=== PATIENT | male | born 1945 | race Caucasian/White ===

== ENCOUNTER → 2019-03-13 | Outpatient (CLI) | payer OTHER ==
[~2019-03-13] MED LIST: BLUEBERRY FLAVOR1 ML MC; COQ-10100 MG PO; D3 DOTS2000 UNIT PO; DRANOCHOL375 MG PO; FOLBIC PO; FOLIC ACID1 MG PO; HYDROCODON-ACE1 EAC8; MULTI VITAMIN1 EACH PO; OCUVITE TABLET1 EAC1 PO; OMEGA-31000 M1 PO; ULTRAM 50MG TAB50 MG PO; VYTORIN 10-101 EACH PO
== END ==
LOC: SJCVC 11:00
DX: E78.00 Pure hypercholesterolemia, unspecified (principal); R07.9 Chest pain, unspecified; R06.09 Other forms of dyspnea; Z87.891 Personal history of nicotine dependence

== ENCOUNTER → 2019-11-26 | Outpatient (CLI) | payer OTHER | LOC: SJCVC 10:56 | PROVIDERS: ATTEND Internal Medicine Cardiovascular Disease | DX: I25.10 Atherosclerotic heart disease of native coronary artery without angina pectoris (principal); E78.00 Pure hypercholesterolemia, unspecified; I49.1 Atrial premature depolarization; K21.9 Gastro-esophageal reflux disease without esophagitis; R00.2 Palpitations; R01.1 Cardiac murmur, unspecified ==

== ENCOUNTER → 2019-11-27 | Outpatient (CLI) | payer OTHER ==
[~2019-11-27] MED LIST changes: +ASA81BEC PO; -D3 DOTS2000 UNIT PO; +D3 DOTS50 MCG PO; +GLUCOSAMIN-CHO1 EACH PO; +OCUVITE LUTEIN1 EAC2 PO; +ZETIA10 MG PO; +ZOCOR20 MG PO
--- NOTE | 2019-11-27 12:14 | 2DMMODE ---
[facility] [place] [address] 2 D/M-MODE ECHOCARDIOGRAM Name: SUSAN ALLEN Room #: REG JUAN ANTONIO ArandaSwati#: [id number] Admission: 11/27/19 Attend Phys: Chapin Elizabeth MD Discharge: Date of : 43 Report #: [id number] THIS REPORT FOR: cc: Amador Leonard Bradford DO Park,Chapin Salinas MD ~ APPROVED REPORT Study performed: 11/27/2019 10:00:27 EXAM: Comprehensive 2D, Doppler, and color-flow Echocardiogram Patient Location: Out-Patient Status: routine BSA: 2.26 HR: 68 bpm BP: 148/86 mmHg Rhythm: Sinus arrhythmia Other Information Study Quality: Adequate Indications Valvular murmur. 2D Dimensions RVDd: 34.62 mm IVSd: 10.46 (7-11mm) LVOT Diam: 23.17 (18-24mm) LVDd: 53.32 mm PWd: 10.86 (7-11mm) Ascending Ao: 36.93 (22-36mm) LVDs: 39.37 (25-40mm) Aortic Root: 40.42 mm Volumes Left Atrial Volume (Systole) Single Plane 4CH: 73.61 mL Single Plane 2CH: 88.42 mL LA ESV Index: 39.00 mL/m2 Aortic Valve AoV Peak Steve.: 1.53 m/s AO Peak Gr.: 9.38 mmHg LVOT Max P.79 mmHg LVOT Max V: 0.84 m/s PERLA Vmax: 2.30 cm2 [facility] [address] [place] [address] 2 D/M-MODE ECHOCARDIOGRAM Name: SUSAN ALLEN Room #: REG [facility]#: [id number] Admission: 11/27/19 Attend Phys: Chapin Elizabeth MD Discharge: Date of : 43 Report #: [id number] Mitral Valve E/A Ratio: 0.8 MV Decel. Time: 276.29 ms MV E Max Steve.: 0.67 m/s MV A Steve.: 0.85 m/s MV PHT: 80.12 ms IVRT: 92.27 ms Pulmonary Valve PV Peak Steve.: 1.04 m/s PV Peak Gr.: 4.32 mmHg Pulmonary Vein P Vein S: 0.61 m/s P Vein A: 0.31 m/s P Vein D: 0.53 m/s P Vein A Dur.: 214.5 msec P Vein S/D Ratio: 1.15 Tricuspid Valve TR Peak Steve.: 2.47 m/s RAP Estimate: 5.00 mmHg TR Peak Gr.: 24.47 mmHg PA Pressure: 29.00 mmHg Left Ventricle The left ventricle is normal size. There is normal LV segmental wall motion. There is normal left ventricular wall thickness. Left ventricular systolic function is normal. LVEF is 55-60%. Mild diastolic dysfunction is present (impaired relaxation pattern). Right Ventricle The right ventricle is normal size. The right ventricular systolic function is normal. Atria Left atrium is mildly dilated. The right atrium size is normal. Aortic Valve The aortic valve is normal in structure. No aortic regurgitation is present. There is no aortic valvular stenosis. Mitral Valve Mitral valve leaflets are thickened. Moderate to severe mitral regurgitation No evidence of mitral valve stenosis. Tricuspid Valve The tricuspid valve is normal in structure. Trace tricuspid [facility] [address] [place] [address] 2 D/M-MODE ECHOCARDIOGRAM Name: SUSAN ALLEN Room #: REG Berna#: [id number] Admission: 11/27/19 Attend Phys: Chapin Elizabeth MD Discharge: Date of : 43 Report #: [id number] regurgitation. Estimated PAP is 30mmHg. Pulmonic Valve The pulmonary valve is normal in structure. Mild pulmonic regurgitation. Great Vessels Aortic root is mildly dilated. The ascending aorta is normal in size. IVC is normal in size and collapses >50% with inspiration. Pericardium There is no pericardial effusion. <Conclusion> The left ventricle is normal size. Left ventricular systolic function is normal. Mild diastolic dysfunction is present (impaired relaxation pattern). The right ventricle is normal size. Left atrium is mildly dilated. The aortic valve is normal in structure. Mitral valve leaflets are thickened. Moderate to severe mitral regurgitation Trace tricuspid regurgitation. Estimated PAP is 30mmHg. <ELECTRONICALLY SIGNED> By: Chapin Elizabeth MD 11/27/191213 13 13 Chapin Elizabeth MD /INF
== END ==
LOC: CV 09:52
PROVIDERS: ATTEND Internal Medicine Cardiovascular Disease
DX: I08.9 Rheumatic multiple valve disease, unspecified (principal); R01.1 Cardiac murmur, unspecified

== ENCOUNTER → 2019-11-28 | Outpatient (CLI) | payer OTHER ==
[~2019-11-28] MED LIST changes: +D3 DOTS2000 UNIT PO; -D3 DOTS50 MCG PO
== END ==
LOC: LAB 14:04
PROVIDERS: ATTEND Internal Medicine Cardiovascular Disease
DX: Z01.812 Encounter for preprocedural laboratory examination (principal); Z20.828 Contact with and (suspected) exposure to other viral communicable diseases

== ENCOUNTER → 2019-12-03 | Outpatient (CLI) | payer OTHER ==
[~2019-12-03] VITALS: Ht 193 cm; Wt 95.3 kg
[2019-12-03 07:20] VITALS: BP 139/71
--- NOTE | 2019-12-03 08:50 | TEE ---
[facility] [place] [address] TRANSESOPHAGEAL ECHOCARDIOGRAM Name: SUSAN ALLEN Room #: REG [facility]#: [id number] Admission: 12/03/19 Attend Phys: Tavo Nelson MD, Discharge: Date of : 43 Report #: [id number] THIS REPORT FOR: cc: Amador Leonard Bradford DO Lundgren,Tavo Manuel MD [facility] ~ APPROVED REPORT Study performed: 12/03/2019 07:45:03 EXAM: Transesophageal Echocardiogram Patient Location: Out-Patient Status: routine BSA: 2.26 HR: 59 bpm BP: 134/77 mmHg Rhythm: NSR Other Information Study Quality: Good Indications Mitral regurgitation. Procedure After obtaining informed consent, patient underwent transesophageal echo in the [employer]. Type of Sedation : Conscious Sedation Sedation was administered by HANS Caldera. Sedation was achieved intravenously with: Versed (3) Fentanyl (50) Transesophageal probe was inserted and advanced into esophagus without difficulty by Tavo Nelson MD. Echo enhancement indication: R/O Septal defect. Echo enhancement agent administered: Agitated Saline The SHANTAL was performed without complications. Throughout the procedure, the blood pressure, pulse oximetry, cardiac rhythm, and rate were monitored. The patient tolerated the procedure without adverse effects. Recovery from conscious sedation was uneventful and vital signs were stable. Left Ventricle The left ventricle is normal size. There is normal LV segmental wall [facility] [address] [place] [address] TRANSESOPHAGEAL ECHOCARDIOGRAM Name: SUSAN ALLEN Room #: REG CL [facility]#: [id number] Admission: 12/03/19 Attend Phys: Tavo Nelson, Discharge: Date of : 43 Report #: [id number] motion. There is normal left ventricular wall thickness. Left ventricular systolic function is low normal. LVEF is 50-55%. Right Ventricle The right ventricle is normal size. The right ventricular systolic function is normal. Atria Left atrium is dilated. No thrombus is visualized in the left atrium or appendage. No shunting noted with contrast bubble injection. The right atrium size is normal. Aortic Valve The aortic valve is normal in structure. No aortic regurgitation is present. There is no aortic valvular stenosis. Mitral Valve Ruptured posterior mitral leaflet chordae with flail segment of posterior leaflet and severe mitral insufficiency (Image 2, frame 14; image 31,frame 32) No evidence of mitral valve stenosis. Tricuspid Valve The tricuspid valve is normal in structure. Trace tricuspid regurgitation. Pulmonic Valve The pulmonary valve is normal in structure. Trace pulmonic regurgitation. Great Vessels The aortic root is normal in size. Minimal atherosclerotic plaque is present in the descending aorta. IVC is normal in size and collapses >50% with inspiration. Pericardium There is no pericardial effusion. <Conclusion> Left ventricular systolic function is low normal. There is normal LV segmental wall motion. LVEF is 50-55%. Left atrium is dilated. No thrombus is visualized in the left atrium or appendage. No shunting noted with contrast bubble injection. The aortic valve is normal in structure. No aortic regurgitation or stenosis. [facility] [address] [place] [address] TRANSESOPHAGEAL ECHOCARDIOGRAM Name: SUSAN ALLEN Room #: REG [facility].#: [id number] Admission: 12/03/19 Attend Phys: Tavo Nelson, Discharge: Date of : 43 Report #: [id number] Ruptured posterior mitral leaflet chordae with flail segment of posterior leaflet and severe mitral insufficiency (Image 2, frame 14; image 31,frame 32) There is no pericardial effusion. <ELECTRONICALLY SIGNED> By: Tavo Nelson MD, FACC 12/03/1950 8 8 Tavo Nelson MD, FACC /INF
== END | disposition home or self-care (01) ==
LOC: CATH 06:30
PROVIDERS: ATTEND Internal Medicine
DX: I08.1 Rheumatic disorders of both mitral and tricuspid valves (principal); I70.0 Atherosclerosis of aorta; I10 Essential (primary) hypertension; E78.00 Pure hypercholesterolemia, unspecified; E78.5 Hyperlipidemia, unspecified; K21.9 Gastro-esophageal reflux disease without esophagitis; Z98.890 Other specified postprocedural states; Z79.899 Other long term (current) drug therapy; Z90.49 Acquired absence of other specified parts of digestive tract; Z87.891 Personal history of nicotine dependence; Z79.82 Long term (current) use of aspirin

== ENCOUNTER → 2019-12-11 | Outpatient (CLI) | payer OTHER ==
[~2019-12-11] VITALS: Ht 193 cm; Wt 95.3 kg
[~2019-12-11] MED LIST changes: -D3 DOTS2000 UNIT PO; +D3 DOTS50 MCG PO
[2019-12-11 07:25] VITALS: BP 154/68
[2019-12-11 07:48] LABS: HEMATOCRIT 44.9 % (42.0-52.0); MCH 32.8 pg (26.0-34.0); MCHC 33.4 g/dL (28.0-37.0); MCV 98.2 fL (80.0-100.0); RBC 4.58 mil/uL (4.50-6.00); RDW 13.8 % (10.5-14.5); WBC 5.1 thou/uL (4.0-11.0)
[2019-12-11 08:03] LABS: CALCIUM 8.9 mg/dL (8.5-10.1); CREATININE 1.1 mg/dL (0.7-1.3); POTASSIUM 4.1 mmol/L (3.5-5.1)
[2019-12-11 09:02] LABS: BE(vivo) 0 mmol/L (-2 to +3); HCO3 26.4 mmol/L (22.0-26.0); PCO2 49.8 mmHg (35.0-45.0); PO2 127.9 mmHg (80.0-100.0); pH 7.343 (7.360-7.450); sO2 98.4 % (92.0-98.0)
[2019-12-11 09:03] LABS: BE(vivo) -3.5 mmol/L (-2 to +3); HCO3 23.2 mmol/L (22.0-26.0); PCO2 48.1 mmHg (35.0-45.0); PO2 45.5 mmHg (80.0-100.0); pH 7.301 (7.360-7.450); sO2 76.7 % (92.0-98.0)
--- NOTE | 2019-12-11 13:45 | CATHLAB ---
[facility] [place] [address] [place] [address] INVASIVE PROCEDURE REPORT Name: SUSAN ALLEN Room #: REG JUAN ANTONIO Swati#: [id number] Admission: 12/11/19 Attend Phys: Chapin Elizabeth MD Discharge: Date of : 43 Report #: [id number] THIS REPORT FOR: cc: NO FAMILY PHYSICIAN or PCP NO FAMILY PHYSICIAN or PCP Chapin Elizabeth MD ~ APPROVED REPORT Study performed: 12/11/2019 08:14:46 Patient Details The patient is a 74 year-old male Event Personnel Chapin Elizabeth Last Puller, Nicky Longo RN RN, Cheli Gotti RN RN, Leigh Haynes, Ericka Alonzo Scrub Procedures Performed Art Access - R femoral artery* Levon Access - R femoral vein Right and Left Heart Cath w/or w/o Coronarie [id number] [facility] 42893 Initial Mod Sed Same Phys/QHP Gr5y 780899 22306 Mod Sed Same Phys/QHP Ea 022519 Hemostasis with Manual pressure Indication Valvular heart disease, Murmur Risk Factors Hypercholesterolemia, Coronary Artery DiseaseHypertension Procedure Narrative The Right Groin^ was infiltrated with subcutaneous anesthesia. A PINNACLE 4FR Sheath #[id number] sheath was inserted into the RFA 4F^. Coronary angiography was performed using coronary diagnostic catheters. The right coronary system was accessed and visualized with a JR4 catheter. The left coronary system was accessed and visualized with a JL4 catheter. The left ventricle was accessed and visualized with a ANGLE PIG catheter. Left ventriculogram was performed in 30 degree projection. Hemostasis was obtained with manual pressure following sheath removal without any complications. PUT A 7F SHEATL IN THE VENOUS FOR RITA DANIELS AND ELPIDIO. Intraoperative Conscious Sedation Sedation start time: 836 Case end Time: [facility] [address] [place] [address] INVASIVE PROCEDURE REPORT Name: TIFFANYSUSAN Ashley Room #: REG [facility]#: [id number] Admission: 12/11/19 Attend Phys: Chapin Elizabeth MD Discharge: Date of : 43 Report #: [id number] Fentanyl 50 mcg Versed 1 mg Fluoro Time: 5.80 minutes Dose: DAP 6704.00 cGycm2 1147 mGy Contrast Type and Amount: Omnipaque 85 ml Coronary Angiography The patient's coronary anatomy is co- dominant. Diagnostic Cath Left Main The left main artery is a large-caliber vessel, appears angiographically normal. LAD The LAD is a moderate-sized caliber vessel, traversing the anterior wall and wrapping around the apex. There is mild calcification in the midsegment with mild diffuse disease, 20 to 30%. Diagonal 1 This is a small to moderate-sized caliber vessel, patent with no flow-limiting lesions. Diagonal 2 This is a moderate-sized caliber vessel, patent with no flow-limiting lesions. Circumflex The left circumflex artery is a codominant vessel, appears angiographically normal. OM1 This is a moderate-sized caliber vessel, patent with no flow-limiting lesions. OM2 This is a small to moderate-sized caliber vessel, patent with no flow-limiting lesions. OM3 This is a moderate-sized caliber vessel, patent with no flow-limiting lesions. Right Coronary There is very mild disease in the midsegment of the RCA. R PDA This is a small to moderate-sized caliber vessel, patent with no flow-limiting lesions. Left Ventriculography The left ventricle is normal in size with normal contractility. The left ventricular ejection fraction is estimated to be >55%. There is severe mitral insufficiency. Hemodynamics The right atrial mean pressure is 8 mmHg. The right ventricular pressure is 26/5 mmHg. The pulmonary artery pressure is 26/10 mmHg with a mean of 17 mmHg. The mean pulmonary capillary wedge pressure is 8 mmHg. The aortic pressure is 126/69 mmHg with a mean of 68 mmHg. The left ventricular pressure is 118/3 mmHg with a mean of mmHg. The left ventricular end diastolic pressure is [address] [facility] [address] [place] [address] INVASIVE PROCEDURE REPORT Name: SUSAN ALLEN Room #: [id number] Admission: 12/11/19 Attend Phys: Chapin Elizabeth MD Discharge: Date of : 43 Report #: [id number] is 76.70 %. Arterial saturation is 98.00 %. The cardiac output using the Elpidio method is 5.58 L/min. The cardiac index using the Elpidio method is 2.47 L/min/m2. Conclusion 1. There is mild disease in the mid segment of the LAD. 2. Codominant system. 3. Right-sided hemodynamics as measured. 4. Severe mitral regurgitation. 5. Normal LV systolic function. <ELECTRONICALLY SIGNED> By: Chapin Elizabeth MD 12/11/19 1345 Chapin Elizabeth MD /INF
== END | disposition home or self-care (01) ==
LOC: CATH 06:32
PROVIDERS: ATTEND Internal Medicine Cardiovascular Disease
DX: I25.10 Atherosclerotic heart disease of native coronary artery without angina pectoris (principal); I34.0 Nonrheumatic mitral (valve) insufficiency; I10 Essential (primary) hypertension; K21.9 Gastro-esophageal reflux disease without esophagitis; E78.00 Pure hypercholesterolemia, unspecified; Z98.890 Other specified postprocedural states; Z79.899 Other long term (current) drug therapy; Z79.82 Long term (current) use of aspirin; Z90.49 Acquired absence of other specified parts of digestive tract; Z87.891 Personal history of nicotine dependence

== ENCOUNTER → 2019-12-23 | Outpatient (CLI) | payer OTHER | LOC: SJCVC 14:58 | PROVIDERS: ATTEND Internal Medicine Cardiovascular Disease | DX: I34.0 Nonrheumatic mitral (valve) insufficiency (principal); I25.10 Atherosclerotic heart disease of native coronary artery without angina pectoris; E78.00 Pure hypercholesterolemia, unspecified; Z79.899 Other long term (current) drug therapy; Z87.891 Personal history of nicotine dependence ==

== ENCOUNTER → 2020-03-15 | Outpatient (CLI) | payer OTHER | LOC: SJCVC 11:09 | PROVIDERS: ATTEND Internal Medicine Cardiovascular Disease | DX: R94.31 Abnormal electrocardiogram [ECG] [EKG] (principal); I34.0 Nonrheumatic mitral (valve) insufficiency; I48.0 Paroxysmal atrial fibrillation; I25.10 Atherosclerotic heart disease of native coronary artery without angina pectoris; I10 Essential (primary) hypertension; E78.00 Pure hypercholesterolemia, unspecified; R00.1 Bradycardia, unspecified; K21.9 Gastro-esophageal reflux disease without esophagitis; E78.5 Hyperlipidemia, unspecified; Z79.899 Other long term (current) drug therapy ==

== ENCOUNTER → 2020-04-08 | Outpatient (CLI) | payer OTHER | LOC: SJCVC 11:38 | PROVIDERS: ATTEND Internal Medicine Cardiovascular Disease | DX: R00.1 Bradycardia, unspecified (principal); I34.0 Nonrheumatic mitral (valve) insufficiency; I48.0 Paroxysmal atrial fibrillation; I25.10 Atherosclerotic heart disease of native coronary artery without angina pectoris; K21.9 Gastro-esophageal reflux disease without esophagitis; E78.5 Hyperlipidemia, unspecified; E78.00 Pure hypercholesterolemia, unspecified; Z79.899 Other long term (current) drug therapy; Z87.891 Personal history of nicotine dependence; Z72.89 Other problems related to lifestyle ==

== ENCOUNTER → 2020-04-29 | Outpatient (CLI) | payer OTHER | LOC: SJCVC 09:00 | PROVIDERS: ATTEND Internal Medicine Cardiovascular Disease | DX: I48.0 Paroxysmal atrial fibrillation (principal); I49.5 Sick sinus syndrome; E78.5 Hyperlipidemia, unspecified; I25.10 Atherosclerotic heart disease of native coronary artery without angina pectoris; Z87.891 Personal history of nicotine dependence; Z72.89 Other problems related to lifestyle ==

== ENCOUNTER → 2020-06-29 | Outpatient (CLI) | payer OTHER | LOC: SJCVC 10:14 | PROVIDERS: ATTEND Internal Medicine Cardiovascular Disease | DX: R94.31 Abnormal electrocardiogram [ECG] [EKG] (principal); I34.0 Nonrheumatic mitral (valve) insufficiency; I48.0 Paroxysmal atrial fibrillation; I25.10 Atherosclerotic heart disease of native coronary artery without angina pectoris; I10 Essential (primary) hypertension; E78.00 Pure hypercholesterolemia, unspecified; K21.9 Gastro-esophageal reflux disease without esophagitis; Z88.8 Allergy status to other drugs, medicaments and biological substances; Z79.899 Other long term (current) drug therapy; Z87.891 Personal history of nicotine dependence; Z72.89 Other problems related to lifestyle ==

== ENCOUNTER → 2020-12-30 | Outpatient (CLI) | payer OTHER | LOC: SJCVC 11:15 | PROVIDERS: ATTEND Internal Medicine Cardiovascular Disease | DX: R94.31 Abnormal electrocardiogram [ECG] [EKG] (principal); I25.10 Atherosclerotic heart disease of native coronary artery without angina pectoris; I48.0 Paroxysmal atrial fibrillation; I34.0 Nonrheumatic mitral (valve) insufficiency; I10 Essential (primary) hypertension; K21.9 Gastro-esophageal reflux disease without esophagitis; Z82.49 Family history of ischemic heart disease and other diseases of the circulatory system; Z87.891 Personal history of nicotine dependence; Z72.89 Other problems related to lifestyle; Z79.899 Other long term (current) drug therapy; Z88.8 Allergy status to other drugs, medicaments and biological substances ==

== ENCOUNTER → 2021-01-11 | Outpatient (CLI) | payer OTHER ==
[~2021-01-11] MED LIST changes: +CARVEDILOL12.5 MG PO; +KRILL OIL 1,001 EACH PO; +TAMSULOSIN HCL0.4 MG PO; +XARELTO20 MG PO
[2021-01-11 11:03] LABS: URINE BILIRUBIN NEGATIVE (Negative); URINE BLOOD NEGATIVE (Negative); URINE CLARITY CLEAR; URINE COLOR YELLOW; URINE GLUCOSE-RANDOM* NEGATIVE (Negative); URINE KETONES NEGATIVE (Negative); URINE LEUKOCYTES-REFLEX NEGATIVE (Negative); URINE NITRITE-REFLEX NEGATIVE (Negative); URINE PROTEIN (DIPSTICK) NEGATIVE (Negative); URINE UROBILINOGEN 0.2 E.U./dl (0.2-1.0)
[2021-01-11 11:04] LABS: HEMATOCRIT 47.2 % (42.0-52.0); HEMOGLOBIN 15.4 gm/dL (14.0-18.0); MCHC 32.7 g/dL (28.0-37.0); MCV 97.8 fL (80.0-100.0); RBC 4.82 mil/uL (4.50-6.00); RDW 13.9 % (10.5-14.5); WBC 6.8 thou/uL (4.0-11.0)
[2021-01-11 11:20] LABS: INR 1.07; PROTIME 11.6 Seconds (10.5-12.1)
[2021-01-11 11:41] LABS: ALBUMIN 3.9 g/dL (3.4-5.0); CALCIUM 9.2 mg/dL (8.5-10.1); CREATININE 0.9 mg/dL (0.7-1.3); POTASSIUM 4.4 mmol/L (3.5-5.1)
== END ==
LOC: PAC 06:07
PROVIDERS: ATTEND Orthopaedic Surgery
DX: Z01.812 Encounter for preprocedural laboratory examination (principal); M17.0 Bilateral primary osteoarthritis of knee; Z20.822 Contact with and (suspected) exposure to COVID-19

== ENCOUNTER 2021-01-17 06:19 | Observation (INO) | payer OTHER ==
[~2021-01-17] VITALS: Ht 193 cm; Wt 104.3 kg
--- NOTE | 2021-01-17 09:47 | O ---
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 PROCEDURE: Left knee medial hemiarthroplasty using Biomet Woodbridge knee system. SURGEON: Jadon Scott MD INDICATIONS: This slender, healthy, very active 75-year-old gentleman complains of progressive bilateral knee pain. He has moderate varus malalignment with medial compartment collapse and [id number] articulation. He still has rather good cartilage space at the patella and the lateral compartment where he does not have significant symptoms. We discussed treatment options. He has tried conservative measures including anti-inflammatories and injection and activity moderation. We have discussed both total knee replacement and medial hemiarthroplasty. He notes he is still quite physically fit and very active and essentially all symptoms along the medial aspect. Given this, he prefers a medial hemiarthroplasty approach. DESCRIPTION OF PROCEDURE: The patient was taken to the operating room where he was placed under general anesthesia. Prophylactic intravenous antibiotics were administered. A femoral nerve block was also applied. The left knee and leg were meticulously prepped and draped. A thigh tourniquet was inflated to 300 mmHg. An anterior longitudinal skin incision was made along the medial border of the patella extending to the medial tibial plateau. This was extended through fascia and capsule to expose the medial aspect of the joint. Marked degenerative change in the medial compartment with essentially complete loss of cartilage was noted. The cruciate ligaments were still intact. There was some spurring about the femoral notch and the patella, which was debrided. There was still fairly good cartilage in that compartment. There seemed to be adequate cartilage in the lateral compartment as well. The PlaySight knee system was utilized. The outrigger guide was used to make the tibial cuts. The medial articular surface was resected. A size D tibial tray seemed to fit most nicely. The femoral intramedullary guide was placed and the femoral cuts were made. A size C femoral component seemed to fit nicely. A trial reduction was performed and additional resection was made distally to balance flexion and extension. [address] [address] OPERATIVE REPORT Name: SUSAN ALLEN Room #: 150-2 [facility]..#: [id number] Admission: 01/17/21 Attend Phys: Jadon Scott MD Discharge: Date of : 43 Report #: [id number] Once these were nicely balanced, a 4 mm polyethylene spacer seemed to fit nicely and resulted in good stability in both flexion and extension. The knee demonstrated full knee extension and flexion beyond 130 degrees with good stability. The trial components were removed. Remaining osteophytes were resected. The sclerotic surface in the inferior aspect of the femoral condyle was perforated with several drill holes to improve cement fixation. Methyl methacrylate cement was mixed. The permanent components were brought up on to the field. The methyl methacrylate cement was injected into the porous surface of the proximal tibia. The Biomet Woodbridge size D tibial tray was selected. This was impacted into the tibia. It seated nicely and appeared to be secure. Excess cement was removed around its margin. The size medium left femoral component was selected and impacted on the distal femur using appropriate anchor holes. Excess cement was removed around its margin. It seated nicely and appeared to be secure. A trial reduction was again performed and again the 4 mm thick meniscal bearing seemed to fit nicely. The permanent bearing was selected and gently snapped into place. It seated well and appeared to track nicely and appeared to be secure without any evidence of instability. The knee was copiously irrigated. All excess fluid was evacuated from the knee. The knee was then closed in layers using #1 Vicryl for the fascia and capsule and 2-0 Monocryl for the subcutaneous tissues and ismael in the skin. A sterile dressing was applied. The patient was awakened and returned to the recovery room in good condition. <ELECTRONICALLY SIGNED> By: Jadon Scott MD 01/17/21 0947 0820 0833 Jadon Scott MD /nt
--- NOTE | 2021-01-17 11:52 | NUR ---
ADMITTED T0 4S @ 1050 AFTER LEFT KNEE REPLACEMENT BY . A/O X 4. ON 2 L 02 POST VIA NASAL CANNULA. BEDREST. VSS. 1/2 NS INFUSING @ 100 MLS/HR VIA RIGHT WRIST PIV. BILATERAL TEDS, SCDS ON. LEFT KNEE MARGARITA DRESSING AND ICE PACK TO KNEE. XARELTO DVT PPX. PERCOCET GIVEN FOR 8/10 LEFT KNEE PAIN. EATING REGULAR DIET. USES URINAL
[2021-01-17 19:52] VITALS: BP 130/69
--- NOTE | 2021-01-18 01:48 | NUR ---
PT IS A/O X4 AND IS UP WITH ASSISTANCE.ROOM AIR. VSS. AFEBRILE. DRSG TO KNEE IS C/D/I. PT IS PLEASANT AND COOPERATIVE. C/O PAIN. PRN PAIN MEDICATIONS GIVEN DIRECTED. FALL PRECAUTIONS IN PLACE, CALL LIGHT IS WITHIN REACH. PT IS PROGRESSING TOWARDS PLAN OF CARE DC GOALS
[2021-01-18 05:55] LABS: ABSOLUTE NEUTROPHILS 7.8 thou/uL (1.4-8.2); BASOPHILS 0.1 % (0.0-2.0); EOSINOPHILS 0.1 % (0.0-3.0); HEMOGLOBIN 13.1 gm/dL (14.0-18.0); LYMPHOCYTES 6.7 % (24.0-44.0); MCH 32.8 pg (26.0-34.0); MCHC 33.7 g/dL (28.0-37.0); MCV 97.3 fL (80.0-100.0); MONOCYTES 6.1 % (1.0-8.0); PLATELET COUNT 166 thou/uL (150-400); RDW 13.8 % (10.5-14.5); WBC 8.9 thou/uL (4.0-11.0)
[2021-01-18 06:33] LABS: CALCIUM 8.3 mg/dL (8.5-10.1); MAGNESIUM 2.1 mg/dL (1.8-2.4); POTASSIUM 4.4 mmol/L (3.5-5.1)
[2021-01-18 07:43] VITALS: BP 128/75
[2021-01-18] MEDS ORDERED: COLACE100 MG PO (08:19)
[2021-01-18] MEDS ORDERED: MIRALAX17 GM PO (08:19)
--- NOTE | 2021-01-18 09:38 | NUR ---
A/O X 4. 2 L O2 VIA NASAL CANNULA. STAND BY WITH WALKER. 1/2 NS INFUSING VIA RIFHT WRIST IV. PAIN /10 LEFT KNEE. NORCO GIVEN FOR PAIN.
--- NOTE | 2021-01-18 13:23 | NUR ---
Pt dc'd to home today. He has a rwalker and plan for outpt therapy for partial knee replacement. No cm interventions indicated.
--- NOTE | 2021-01-20 07:37 | D ---
[facility] [place] [address] DISCHARGE SUMMARY Name: SUSAN ALLEN [facility]P [id number] Admission: 01/17/21 Attend Phys: Jadon Scott MD Discharge: 01/18/21 Date of : 43 Report #: [id number] THIS REPORT FOR: cc: FAM - Family physician unknown FAM - Family physician unknown Jadon Scott MD ~ FINAL DIAGNOSIS: Degenerative arthritis, left knee. OPERATION AND PROCEDURE: Left knee medial hemiarthroplasty. HISTORY: This very slender, very fit and very active 75-year-old gentleman complains of progressive bilateral knee pain with varus malalignment. Symptoms are more severe on the left than the right. We have discussed treatment options including total knee replacement or medial hemiarthroplasty. As almost all of his symptoms are along the medial joint line and aggravated by significant varus malalignment, he prefers a medial hemiarthroplasty approach, hoping to resume more vigorous physical activities. HOSPITAL COURSE: The patient was admitted and taken to the operating room on 01/17/2021. He underwent left knee medial hemiarthroplasty using Biomet [place] knee system. He tolerated this well. Postoperatively, his course was largely unremarkable. He had some difficulty with movement and ambulation initially due to the preoperative femoral nerve block. Once that improved, he is able to stand and walk with his walker and with physical therapy assistance. The dressing is clean and dry. He has improving range of motion. His pain is well managed with oral pain medication. He has resumed his usual preoperative medications. He seems safe and stable and ready for discharge home on 01/18/2021. He will continue independent exercise at home and then begin outpatient physical therapy once symptoms allow. His discharge medications include Xarelto 10 mg daily and hydrocodone 10 mg daily; omega fatty acids 1000 mg daily, multivitamin once daily, simvastatin 20 mg daily, glucosamine and chondroitin sulfate 1 tablet daily. He will continue independent exercise at home using a walker for balance and safety. I will see him back in my office in 1 week and in 2 weeks for followup and suture removal. <ELECTRONICALLY SIGNED> By: Jadon Scott MD 01/20/21 0737 0653 0709 Jadon Scott MD /nt
== END 2021-01-18 11:52 | disposition home or self-care (01) ==
LOC: OR → 4S 06:19 → OR 06:19 → TBA 06:23 → OR 07:07 → 4S 10:46 → OR 10:47 → 4S 10:47 → PRE 11:08 → EDSTATUS 11:33 → OR 13:29 → 4S 01-18 11:52
PROVIDERS: Nurse Practitioner; ADMIT Orthopaedic Surgery; ATTEND Orthopaedic Surgery
DX: M17.12 Unilateral primary osteoarthritis, left knee (principal); M21.162 Varus deformity, not elsewhere classified, left knee; E78.5 Hyperlipidemia, unspecified; K21.9 Gastro-esophageal reflux disease without esophagitis; I48.0 Paroxysmal atrial fibrillation; N40.0 Benign prostatic hyperplasia without lower urinary tract symptoms; Z79.01 Long term (current) use of anticoagulants; Z79.899 Other long term (current) drug therapy; Z87.891 Personal history of nicotine dependence
CPT/HCPCS: 50010; 50101; 50415; 51130; 51225; 51412; 56525; 57095; 57180; 57254; 58111; 58112; 58940; 59107; 62110; 62900; 70005